=== PATIENT | female | born 1950 | race Caucasian/White ===

== ENCOUNTER 2019-03-03 00:31 | Inpatient (IN) | payer BC ==
[~2019-03-03] VITALS: Ht 152.4 cm; Wt 51.7 kg
[2019-03-03 00:43] VITALS: BP 153/63
[2019-03-03] MEDS ORDERED: ASA81BEC PO (00:44)
[2019-03-03 00:57] LABS: ABSOLUTE EOSINOPHILS 0.1 thou/uL (0.0-0.7); ABSOLUTE LYMPHOCYTES 1.3 thou/uL (0.8-5.3); ABSOLUTE MONOCYTES 0.6 thou/uL (0.0-1.2); ABSOLUTE NEUTROPHILS 8.5 thou/uL (1.6-8.1); BASOPHILS 0.3 %; EOSINOPHILS 1.1 %; HEMATOCRIT 35.5 % (37.0-47.0); HEMOGLOBIN 12.1 gm/dL (12.0-15.0); LYMPHOCYTES 12.2 %; MCH 30.2 pg (26.0-34.0); MCHC 34.1 g/dL (28.0-37.0); MCV 88.5 fL (80.0-100.0); MONOCYTES 5.6 %; NUCLEATED RBCS 0 /100WBC; PLATELET COUNT* 229 thou/uL (150-400); POLYS 80.8 %; RBC 4.01 mil/uL (4.20-5.00); RDW-CV 13.5 % (10.5-14.5); WBC 10.6 thou/uL (4.0-11.0)
[2019-03-03 01:03] LABS: CALCIUM 9.3 mg/dL (8.5-10.1); CREATININE 0.7 mg/dL (0.6-1.3); POTASSIUM 3.5 mmol/L (3.5-5.1)
[2019-03-03 01:08] LABS: APTT 21.9 Seconds (25.0-31.3); PROTIME 10.6 Seconds (9.20-11.50)
[2019-03-03 01:14] LABS: ALBUMIN 4.1 g/dL (3.4-5.0); TOTAL BILIRUBIN 0.3 mg/dL (<0.1-1.0); TOTAL PROTEIN 7.1 g/dL (6.4-8.2)
[2019-03-03 01:14] LABS: PCO2 32.6 mmHg (35.0-45.0); PO2 69.4 mmHg (75.0-100.0); pH 7.526 (7.340-7.450)
[2019-03-03 03:54] VITALS: BP 128/56
[2019-03-03 04:18] VITALS: BP 120/65
--- NOTE | 2019-03-03 05:22 | NUR ---
PT ARRIVED AT 0400 WITH FAMILY. ALERT AND ORIENTED, FORGETFUL. VSS RA. ADMISSION HX/ASSESSMENT COMPLETED. NO C/O PAIN, N/V. IV FLUID RUNNING ORDERED. AND GRANDDAUGHTER AT BEDSIDE. WILL CONTINUE TO MONITOR.
[2019-03-03 07:31] LABS: CALCIUM 8.7 mg/dL (8.5-10.1); CREATININE 0.7 mg/dL (0.6-1.3)
[2019-03-03 07:40] VITALS: BP 121/61
[2019-03-03 09:41] LABS: ANTI-Xa-UNFRACTIONATED HEP 7.408; BE -1.1 mmol/L (-2 to +3); PCO2 37.6 mmHg (35.0-45.0); PO2 99.4 mmHg (75.0-100.0); pH 7.408 (7.340-7.450)
--- NOTE | 2019-03-03 12:59 | EKG ---
[place] [address] ELECTROCARDIOGRAM REPORT Name: TORI GOMEZ Room: [address] ADM IN M.R.#: [id number] Admission: 03/03/19 Attend Phys: Leroy Almanza Discharge: Date of : 48 Report #: [id number] THIS REPORT FOR: //name// [facility] ED Test Date: 2019-03-03 Test Time: 00:36:25 Pat Name: TORI GOMEZ Department: Room: [facility] Gender: F Property Management Intern: : 1950 Requested By: Micaela Freire Order Number: [id number] MD: Vazquez Mitchell Measurements Intervals [place] Rate: 80 P: 51 AK: 159 QRS: 39 QRSD: 98 T: 47 QT: 401 QTc: 463 Interpretive Statements Sinus rhythm No previous ECG available for comparison Electronically Signed On 03-03-2019 12:59:11 [employer] by Vazquez Mitchell [email or web address] <ELECTRONICALLY SIGNED> By: Jackie Mitchell MD, [facility] 03/03/19 [id number] [id number] 003 Jackie Mitchell MD, FACC /EPI
--- NOTE | 2019-03-03 16:56 | NUR ---
ASSUMED CARE OF PATIENT AT APPROX 0730. ALERT AND ORIENTED X4. ASSESSMENT COMPLETED AND CHARTED. VSS ON ROOM AIR. NO COMPLAINTS OF PAIN, NAUSEA, OR SOA. FLUIDS INFUSED ORDERED. PATIENT UP WITH STAND BY ASSIST, USING GAIT BELT AND WALKER, USING THE BATHROOM TO VOID. NO OTHER COMPLAINTS THIS SHIFT. FALL PRECAUTIONS IN PLACE. CALL LIGHT WITHIN REACH. HOURLY ROUNDS COMPLETED. NURSING WILL CONTINUE TO MONITOR.
[2019-03-03 19:50] VITALS: BP 112/55
--- NOTE | 2019-03-04 04:54 | NUR ---
PT ALERT AND ORIENTED. VSS RA. MEDS GIVEN ORDERED. BED ALARMS ON FOR SAFETY. PT UP TO THE BATHROOM WITH STANDBY ASSIST. PT DENIED PAIN. SLEEPING ON HOURLY ROUNDINGS. WILL CONTINUE TO MONITOR.
[2019-03-04 05:08] LABS: HEMATOCRIT 31.8 % (37.0-47.0); HEMOGLOBIN 10.8 gm/dL (12.0-15.0); MCH 30.2 pg (26.0-34.0); MCV 88.7 fL (80.0-100.0); MPV 7.7 fl. (7.2-11.1); RBC 3.59 mil/uL (4.20-5.00); RDW-CV 14.1 % (10.5-14.5); WBC 13.9 thou/uL (4.0-11.0)
[2019-03-04 05:20] LABS: ALBUMIN 2.9 g/dL (3.4-5.0); CALCIUM 8.2 mg/dL (8.5-10.1); CREATININE 0.7 mg/dL (0.6-1.3); POTASSIUM 3.4 mmol/L (3.5-5.1); TOTAL BILIRUBIN 0.2 mg/dL (<0.1-1.0); TOTAL PROTEIN 5.6 g/dL (6.4-8.2)
[2019-03-04 07:30] VITALS: BP 141/60
[2019-03-04] MEDS ORDERED: ARICEPT10 M1 PO (08:49)
[2019-03-04] MEDS ORDERED: PEPCID20 MG PO (08:49)
[2019-03-04] MEDS ORDERED: ZYRTEC10 MG PO (08:49)
[2019-03-04] MEDS ORDERED: PREDNISONE 10 M10 MG PO (08:50)
[2019-03-04 09:43] VITALS: BP 141/60
--- NOTE | 2019-03-04 11:32 | NUR ---
PATIENT UP IN ROOM WITH SBA AND USE OF WALKER. PATIENT TO DISCHARGE HOME. SON HERE TO TAKE PATIENT HOME. VERBALIZES UNDERSTANDING OF PAPERWORK AND SCRIPTS. IV DC'D. PATIENT AMBULATED OUT WITH NURSING STAFF AND ALL BELONGINGS.
== END 2019-03-04 11:33 | disposition home or self-care (01) | DRG 607 ==
LOC: M.ERS 00:31 → M.ORTHSURG 03:09 → M.TBA-ER 03:09 → M.ORTHSURG 04:05
PROVIDERS: Internal Medicine; Personal Emergency Response Attendant; ADMIT Internal Medicine
DX: L23.3 Allergic contact dermatitis due to drugs in contact with skin (principal); E87.3 Alkalosis; T36.8X5A Adverse effect of other systemic antibiotics, initial encounter; E04.1 Nontoxic single thyroid nodule; F03.90 Unspecified dementia, unspecified severity, without behavioral disturbance, psychotic disturbance, mood disturbance, and anxiety; Z79.82 Long term (current) use of aspirin; Y92.89 Other specified places as the place of occurrence of the external cause

== ENCOUNTER 2021-03-20 10:26 | Emergency (ER) | payer BC ==
[~2021-03-20] VITALS: Ht 157.5 cm; Wt 49.9 kg
[~2021-03-20 10:26] MED LIST: ARICEPT10 M1 PO; ASA81BEC PO; PEPCID20 MG PO; PREDNISONE 10 M10 MG PO; ZYRTEC10 MG PO
[2021-03-20 11:49] VITALS: BP 123/54
== END 2021-03-20 11:50 | disposition home or self-care (01) ==
LOC: M.ERS 10:26
DX: S60.212A Contusion of left wrist, initial encounter (principal); M19.032 Primary osteoarthritis, left wrist; F32.9 Major depressive disorder, single episode, unspecified; Z88.1 Allergy status to other antibiotic agents; W23.0XXA Caught, crushed, jammed, or pinched between moving objects, initial encounter; Y93.89 Activity, other specified; Y92.89 Other specified places as the place of occurrence of the external cause; Y99.8 Other external cause status